=== PATIENT | male | born 1995 | race Caucasian/White ===

== ENCOUNTER 2023-11-22 02:12 | Emergency (ER) | payer BC ==
[~2023-11-22] VITALS: Ht 170.2 cm; Wt 79.8 kg
[2023-11-22] MEDS ORDERED: IBUPROFEN 400 MG TABLET ONE (02:46)
[2023-11-22] MEDS ORDERED: IBUPROFEN 400 MG TABLET PO ONE (03:00)
[2023-11-22 03:02] LABS: APPEARANCE,URINE CLEAR (CLEAR); BILIRUBIN,URINE NEGATIVE (NEGATIVE); BLOOD, URINE NEGATIVE Ery/uL (NEGATIVE); COLOR,URINE YELLOW (YELLOW); KETONES,URINE NEGATIVE (NEGATIVE); LEUKOCYTE ESTERASE ,URINE TRACE (NEGATIVE); NITRITE, URINE NEGATIVE (NEGATIVE); PROTEIN,URINE NEGATIVE (NEGATIVE); UGLUCOSE NEGATIVE (NEGATIVE); UROBILINOGEN,URINE 0.2 EU/dL (0.2)
[2023-11-22 03:06] LABS: ADD URINE CULTURE YES; BACTERIA,URINE Rare /HPF (None Seen); RBC,URINE 0-2 /HPF (0-2); SQUAMOUS EPITHELIAL CELL,UR Few /HPF (None Seen)
[2023-11-22] MEDS ORDERED: CEFTRIAXONE 500 MG VIAL IM ONE (03:30)
[2023-11-22] MEDS ORDERED: CEFTRIAXONE 500 MG VIAL ONE (03:33)
[2023-11-22] MEDS ORDERED: LEVO500T90 PO (03:33)
[2023-11-22] MEDS ORDERED: LIDOCAINE 1% INJ 50 ML MDV IJ ONE (03:34)
[2023-11-22 03:48] VITALS: BP 134/81; TEMP 98.1; O2SAT 98
== END 2023-11-22 03:48 | disposition home or self-care (01) ==
LOC: ER 02:12
DX: N45.1 Epididymitis (principal)
CPT/HCPCS: 99285; 96372; 76870; 87086; 81001; J3490; J0696